=== PATIENT | female | born 1945 | race Caucasian/White ===

== ENCOUNTER 2024-03-12 06:35 | Day surgery (SDC) | payer MEDICARE ==
[2024-03-12] VITALS (10 sets, daily range): BP systolic 134–199; BP diastolic 66–99; PULSE 66–73; RESP 10–12; TEMP 98.4; O2SAT 96–100
[~2024-03-12] VITALS: Ht 162.6 cm; Wt 48.5 kg
[~2024-03-12 06:35] MED LIST: ATEN25TA PO; BENA1TAB14 PO; DIGO-27 PO; OMEG500C3 PO
[2024-03-12] MEDS ORDERED: midazolam 1 mg/ML 2ml injection ONE ×2 (07:18→08:32)
[2024-03-12] MEDS ORDERED: fentaNYL/PF 50MCG/1 ML 2ML syringe ONE ×2 (07:18→08:32)
[2024-03-12] MEDS ORDERED: LIDOcaine 1% W/epiNEPHrine 1:100,000 20ml vial ONE ×2 (07:18→08:33)
[2024-03-12] MEDS ORDERED: BENA-7 PO (07:21)
[2024-03-12] MEDS ORDERED: RYT225T PO (07:21)
[2024-03-12] MEDS ORDERED: ROSU10TA72 PO (07:21)
[2024-03-12] MEDS ORDERED: APIX2.5T PO (07:21)
[2024-03-12] MEDS ORDERED: OMEP20CA16 PO (07:21)
[2024-03-12] MEDS ORDERED: CLOP75TA34 PO (07:21)
[2024-03-12] MEDS ORDERED: ATEN-27 PO (07:21)
[2024-03-12] MEDS ORDERED: vancomycin 1,000mg inj ONE (07:22)
[2024-03-12] MEDS ORDERED: ceFAZolin 1000mg inj ONE (07:30)
[2024-03-12] MEDS ORDERED: VANCOMYCIN 1GM 200ML H20 (PEG) 200 ML IV ONE (07:35)
[2024-03-12 07:41] LABS: BASOPHILS # (AUTO) 0.1 X10'3 (0-0.2); BASOPHILS % (AUTO) 0.8 % (0-1); EOSINOPHILS # (AUTO) 0.2 X10'3 (0-0.9); EOSINOPHILS % (AUTO) 2.3 % (0-6); HEMATOCRIT 41.4 % (35.0-45.0); HEMOGLOBIN 13.8 g/dl (12.0-16.0); LYMPHOCYTES % (AUTO) 10.8 % (21-51); MEAN CORPUSCULAR HGB CONC 33.4 g/dL (33.0-36.5); MEAN CORPUSCULAR VOLUME 86.8 FL (78-98); MEAN PLATELET VOLUME 8.6 FL (7.4-10.4); MONOCYTES # (AUTO) 0.5 X10'3 (0-0.9); MONOCYTES % (AUTO) 5.9 % (2-12); NEUTROPHILS # (AUTO) 7.3 X10'3 (1.8-7.7); NEUTROPHILS % (AUTO) 80.2 % (42-75); PLATELET COUNT 146 X10'3 (140-440); RED BLOOD COUNT 4.77 X10'6 (4.20-5.60); RED CELL DISTRIBUTION WIDTH 14.2 % (11.5-14.5); WHITE BLOOD COUNT 9.1 X10'3 (4.5-11.0)
[2024-03-12] MEDS: vancomycin/NS 1 GM ADD-VANTAGE 250 ML X 1 DOSE IV ONE (07:41)
[2024-03-12 08:00] LABS: ALBUMIN 3.5 G/DL (3.4-5.0); ANION GAP 7 (8-16); BLOOD UREA NITROGEN 19 MG/DL (7-18); BUN/CREATININE RATIO 15.7 (10.0-20.0); CALCIUM 8.7 MG/DL (8.5-10.1); CHLORIDE 103 MMOL/L (99-107); CREATININE 1.21 MG/DL (0.40-0.90); GLUCOSE 105 MG/DL (70-104); POTASSIUM 3.9 MMOL/L (3.5-5.1); SODIUM 139 MMOL/L (135-145); TOTAL CARBON DIOXIDE 29.4 MMOL/L (24-32); eCRCL 28 ML/MIN; eGFR 43 ML/MIN
[2024-03-12] MEDS ORDERED: iohexol 350 MG/ML 50ML vial IV ONE (08:01)
[2024-03-12 08:11] LABS: PROTHROMBIN TIME 10.9 SECONDS (9.0-12.0)
[2024-03-12] MEDS ORDERED: hydrALAZINE 20mg/ml inj. ONE (08:45)
[2024-03-12] MEDS ORDERED: normal saline 1000ml 1,000 ML IV SCH (10:35)
[2024-03-12] MEDS: ondansetron/PF 4mg/2ml inj ONE (12:43)
[2024-03-12] MEDS: acetaminophen 325mg tablet PO PRN (13:33)
[2024-03-13] MEDS ORDERED: HYDR-3965 PO (16:42)
[2024-03-13] MEDS ORDERED: ONDA-245 PO (16:42)
== END 2024-03-12 14:30 | disposition home or self-care (01) ==
LOC: SSTAY O 06:35
PROVIDERS: ATTEND Internal Medicine Cardiovascular Disease
DX: I49.5 Sick sinus syndrome (principal); I11.9 Hypertensive heart disease without heart failure; I25.118 Atherosclerotic heart disease of native coronary artery with other forms of angina pectoris; E78.5 Hyperlipidemia, unspecified; I48.0 Paroxysmal atrial fibrillation; I25.2 Old myocardial infarction; Z87.891 Personal history of nicotine dependence; Z79.01 Long term (current) use of anticoagulants; Z79.02 Long term (current) use of antithrombotics/antiplatelets; Z79.899 Other long term (current) drug therapy; Z95.5 Presence of coronary angioplasty implant and graft; Z98.890 Other specified postprocedural states; Z88.8 Allergy status to other drugs, medicaments and biological substances; Z82.49 Family history of ischemic heart disease and other diseases of the circulatory system
CPT/HCPCS: 33208; 36415; 71045; 80048; 83735; 85025; 85610; 93005; 99152; 99153; A4565; C1785; C1898; J0360; J0690; J2250; J2405; J3010; J3370; J3490; J7030; Q9967

== ENCOUNTER 2024-03-13 10:03 | Emergency (ER) | payer MEDICARE ==
[~2024-03-13] VITALS: Ht 162.6 cm; Wt 48.4 kg
[~2024-03-13 10:03] MED LIST changes: +APIX2.5T PO; +ATEN-27 PO; +BENA-7 PO; -BENA1TAB14 PO; +CLOP75TA34 PO; -DIGO-27 PO; -OMEG500C3 PO; +OMEP20CA16 PO; +ROSU10TA72 PO; +RYT225T PO
[2024-03-13 13:42] LABS: BASOPHILS % (AUTO) 0.4 % (0-1); EOSINOPHILS % (AUTO) 0.5 % (0-6); HEMATOCRIT 40.3 % (35.0-45.0); HEMOGLOBIN 13.1 g/dl (12.0-16.0); LYMPHOCYTES % (AUTO) 10.4 % (21-51); MEAN CORPUSCULAR HEMOGLOBIN 28.7 PG (27.0-31.0); MEAN CORPUSCULAR HGB CONC 32.5 g/dL (33.0-36.5); MEAN CORPUSCULAR VOLUME 88.3 FL (78-98); MEAN PLATELET VOLUME 8.4 FL (7.4-10.4); MONOCYTES # (AUTO) 0.8 X10'3 (0-0.9); MONOCYTES % (AUTO) 8.1 % (2-12); NEUTROPHILS # (AUTO) 7.6 X10'3 (1.8-7.7); NEUTROPHILS % (AUTO) 80.6 % (42-75); PLATELET COUNT 130 X10'3 (140-440); RED BLOOD COUNT 4.56 X10'6 (4.20-5.60); RED CELL DISTRIBUTION WIDTH 14.5 % (11.5-14.5); WHITE BLOOD COUNT 9.4 X10'3 (4.5-11.0)
[2024-03-13 13:47] LABS: APTT 26 SECONDS (22-32)
[2024-03-13 13:49] LABS: ALANINE AMINOTRANSFERASE 16 U/L (12-78); ALBUMIN 3.6 G/DL (3.4-5.0); ALKALINE PHOSPHATASE 60 IU/L (46-116); ANION GAP 7 (8-16); ASPARTATE AMINO TRANSFERASE 24 U/L (10-37); BLOOD UREA NITROGEN 21 MG/DL (7-18); BUN/CREATININE RATIO 17.2 (10.0-20.0); CALCIUM 8.9 MG/DL (8.5-10.1); CHLORIDE 103 MMOL/L (99-107); CREATININE 1.22 MG/DL (0.40-0.90); GLUCOSE 107 MG/DL (70-104); LIPASE 46 U/L (16-77); POTASSIUM 3.6 MMOL/L (3.5-5.1); SODIUM 137 MMOL/L (135-145); TOTAL CARBON DIOXIDE 26.8 MMOL/L (24-32); TOTAL PROTEIN 7.3 G/DL (6.4-8.2); eCRCL 28 ML/MIN; eGFR 42 ML/MIN
[2024-03-13] MEDS: acetaminophen 325mg tablet PO ONE (16:19)
[2024-03-13] MEDS: ondansetron 4mg rapidly disintigrating tab PO STA (16:29)
[2024-03-13] MEDS: HYDROcodone/acetaminophen 5mg/325mg tablet PO STA (16:30)
[2024-03-13] MEDS ORDERED: ONDA-245 PO (16:42)
[2024-03-13] MEDS ORDERED: HYDR-3965 PO (16:42)
[2024-03-13 16:58] VITALS: BP 183/90; PULSE 81; RESP 16; TEMP 97.6; O2SAT 97
== END 2024-03-13 17:00 | disposition home or self-care (01) ==
LOC: ER 10:03
DX: R22.42 Localized swelling, mass and lump, left lower limb (principal); I48.91 Unspecified atrial fibrillation; I10 Essential (primary) hypertension; Z88.2 Allergy status to sulfonamides; Z88.1 Allergy status to other antibiotic agents; Z88.8 Allergy status to other drugs, medicaments and biological substances; Z79.899 Other long term (current) drug therapy; Z72.89 Other problems related to lifestyle
CPT/HCPCS: 36415; 80053; 83690; 85025; 85730; 93971; 99284